=== PATIENT | female | born 1985 | race Hispanic/Latino ===

== ENCOUNTER 2017-08-29 23:20 | Emergency (ER) | payer MEDICAID ==
[2017-08-29 23:24] VITALS: TEMP 96.3
[2017-08-30 00:32] LABS: BENZODIAZEPINES, UR NEGATIVE (NEGATIVE); OPIATES, UR POSITIVE (NEGATIVE); PHENCYCLIDINE, UR NEGATIVE (NEGATIVE)
[2017-08-30 00:41] LABS: BASO % 0.3 % (0.0-2.0); EOS % 0.2 % (0.0-4.0); HEMOGLOBIN 12.6 g/dL (12.0-16.0); LYMPH # 2.6 K/uL (1.0-4.3); LYMPH % 16.4 % (20.0-40.0); MEAN CELL VOLUME 95.4 fl (81.0-99.0); MEAN CORPUSCULAR HEMOGLOBIN 32.4 pg (27.0-31.0); MEAN PLATELET VOLUME 7.4 fl (7.2-11.7); MONO # 0.5 K/uL (0.0-0.8); MONO % 2.9 % (0.0-10.0); NEUT # 12.6 K/uL (1.8-7.0); NEUT % 80.2 % (50.0-75.0); RBC 3.87 Mil/uL (3.80-5.20); WHITE BLOOD COUNT 15.7 K/uL (4.8-10.8)
[2017-08-30 00:47] LABS: BARBITURATES, UR NEGATIVE (NEGATIVE)
[2017-08-30 00:51] LABS: ALB/GLOB RATIO 1.3 (1.0-2.1); ALBUMIN 3.8 g/dL (3.5-5.0); ALT/SGPT 30 U/L (9-52); AST/SGOT 39 U/L (14-36); BLOOD UREA NITROGEN 16 mg/dl (7-17); CALCIUM 8.5 mg/dL (8.4-10.2); GFR AFRICAN-AMERICAN > 60; GFR NON-AFRICAN AMERICAN > 60
--- NOTE | 2017-08-30 01:04 | ED PDOC ---
HPI: General Adult Time Seen by Provider: 08/29/17 23:31 Chief Complaint (Nursing): Weakness/Neurological Deficit Chief Complaint (Provider): body pain History Per: Patient History/Exam Limitations: intoxication Onset/Duration Of Symptoms: Days, Waxing/Waning Additional Complaint(s): 31 y/o female brought in by EMS for evaluation of total body pain x 1 month. Patient refusing to answer questions, keeps repeating "I just need something for pain". Patient with slurred speech, appears under the influence. Patient with sutured laceration to left lower leg after cutting it on glass and has bracelet from [facility] ED; as per EMS patient was just evaluated there and left because she did not get pain medication. HPI slightly limited due to patient's current state. Past Medical History Reviewed: Historical Data, Nursing Documentation, Vital Signs Vital Signs: Last Vital Signs Temp 96.3 F L 08/29/17 23:21 Pulse 79 08/30/17 04:53 Resp 20 08/30/17 04:53 BP 125/60 08/30/17 04:53 Pulse Ox 100 08/30/17 04:53 - Medical History PMH: No Chronic Diseases - Surgical History Surgical History: No Surg Hx - Family History Family History: States: No Known Family Hx - Social History Current smoker - smoking cessation education provided: Yes Alcohol: None Drugs: Denies - Allergies Allergies/Adverse Reactions: Allergies Allergy/AdvReac Type Severity Reaction Status Date / Time No Known Allergies Allergy Verified 08/29/17 23:21 Review of Systems ROS Statement: Except As Marked, All Systems Reviewed And Found Negative Musculoskeletal: Positive for: Other (body pain) Physical Exam - Reviewed Nursing Documentation Reviewed: Yes Vital Signs Reviewed: Yes - Physical Exam Appears: Positive for: Well, Non-toxic, Uncomfortable (anxious) Head Exam: Positive for: ATRAUMATIC, NORMAL INSPECTION, NORMOCEPHALIC Skin: Positive for: Normal Color Eye Exam: Positive for: Normal appearance ENT: Positive for: Normal ENT Inspection Cardiovascular/Chest: Positive for: Regular Rate, Rhythm Respiratory: Positive for: Normal Breath Sounds Gastrointestinal/Abdominal: Positive for: Normal Exam Extremity: Positive for: Normal ROM, Other (sutured laceration left medial thigh ; bleeding to gauze noted; sutures appear in place, no surrounding edema, erythema. FROM) Neurologic/Psych: Positive for: Alert, Oriented - Laboratory Results Result Diagrams: 08/30/17 00:22 08/30/17 00:22 - ECG O2 Sat by Pulse Oximetry: 96 - Progress ED Course And Treament: telfa/gauze applied to laceration labs, urine ordered Patient given juice, sandwich for low glucose on labs Repeat accucheck 137 2:00 Patient sleeping; no distress 3:30 Patient sleeping; no distress 5:00 Patient awake, alert, oriented x3, ambulating steady gait. Stable for discharge Follow up PMD 2-3 days. Return precautions given Disposition - Clinical Impression Clinical Impression: Polysubstance abuse - Patient ED Disposition Is Patient to be Admitted: No Counseled Patient/Family Regarding: Studies Performed, Diagnosis, Need For Followup - Disposition Referrals: [facility] [Outside] Disposition: Routine/Home Disposition Time: 05:00 Condition: STABLE Instructions: Polysubstance Abuse Forms: [employer] ([employer])
[2017-08-30 04:54] VITALS: BP 125/60; PULSE 79; RESP 20
[2017-08-30 05:09] VITALS: O2SAT 96
== END 2017-08-30 05:02 | disposition home or self-care (01) ==
LOC: H.ER 23:20
DX: F19.10 Other psychoactive substance abuse, uncomplicated (principal); F17.200 Nicotine dependence, unspecified, uncomplicated